=== PATIENT | male | born 1950 | race Two or more races ===

== ENCOUNTER → 2024-10-26 | Outpatient (BNVA) | payer MEDICARE, SELFPAY | END | disposition home or self-care (01) | PROVIDERS: PCP Nurse Practitioner Family; Referring Provider Nurse Practitioner Family; Visit Provider Nurse Practitioner Family | DX: F41.9 Anxiety disorder, unspecified (principal); I10 Essential (primary) hypertension; E78.5 Hyperlipidemia, unspecified; J44.9 Chronic obstructive pulmonary disease, unspecified | CPT/HCPCS: 99213 ==

== ENCOUNTER 2024-11-01 19:08 | Inpatient (IN) | payer MEDICARE, MEDICAID, SELFPAY ==
[2024-11-01 19:10] VITALS: BMI 25.8
--- NOTE | 2024-11-01 19:19 | EKG_ITS ---
[facility] Test Date: 2024-11-01 Pat Name: TESFAYE BENITEZ Department: Room: - Gender: Male Feed [employer]ender: : 1950 Requested By: Gabriele Caldwell Order Number: [id number] Reading MD: Gabriele Caldwell Measurements Intervals [place] Rate: 94 P: 35 [place]: 104 QRS: 83 QRSD: 92 T: 56 QT: 321 QTc: 402 Interpretive Statements SINUS RHYTHM WITH SHORT [place] INTERVAL Compared to ECG 03/09/2022 11:55:56 Sinus bradycardia no longer present /store/S0/[id number]
[2024-11-01 19:30] VITALS: BP 159/48; PULSE 95; RESP 20; TEMP 37.6; O2SAT 95
--- NOTE | 2024-11-01 21:16 | XR_ITS ---
Examination: CTA carotids with intravenous contrast CTA brain, head with intravenous contrast. 2-D sagittal, coronal reconstructions. 3-D reconstructions. Exam date and time: November 01, 2024 at 2137 hours INDICATIONS: Stroke alert, onset focal neurologic deficit today CTDI: vol (mGy) 10.9 DLP: (mGycm) 430 Technique: Multiple CTA axial brain, head carotid images post intravenous contrast injection 75 cc, Isovue-370. 2-D sagittal, coronal reconstructions. 3-D reconstructions, 3-D post processing including vascular maximum intensity projection images. Low dose protocols were performed. One or more of the following dose reduction techniques were used; automated exposure control, adjustment of the mA and/or KV according to patient size, use of iterative reconstruction technique. Findings: 30-50% stenosis left carotid bifurcation origin left internal carotid artery No significant right common carotid or right internal carotid artery stenosis Dominant right vertebral artery with no critical stenoses No cerebral vasculature occlusions or thrombus IMPRESSION: 30-50% stenosis left carotid bifurcation origin left internal carotid artery No cerebral large vessel arterial occlusions or thrombus
--- NOTE | 2024-11-01 21:16 | XR_ITS ---
Examination: CT brain head without contrast. 2-D sagittal coronal reconstructions Date and time of exam:November 01, 2024 2124 hours INDICATIONS: Onset focal neurologic deficit beginning 9 hours ago CTDI: vol (mGy):47.2 DLP: (mGycm):912 Technique: Multiple CT axial sections of the brain have been obtained, 5 mm slice thickness. Contrast has not been administered. 2-D sagittal, coronal reconstructions have been obtained Low dose protocols were performed. One or more of the following dose reduction techniques were used; automated exposure control, adjustment of the mA and/or KV according to patient size, use of iterative reconstruction technique. Findings: No significant ventricular enlargement. Significant left maxillary sinusitis Intra-axial or extra-axial hemorrhage density is not seen. No mass effect or midline shift Basal cisterns are not remarkable. Fourth ventricle is midline. Cranial vault intact. Impression: Negative for acute hemorrhage, mass effect or midline shift
--- NOTE | 2024-11-01 21:17 | PD.EDRME ---
Rapid Medical Screening Exam [facility] Arrival date/time: 11/01/24 19:08 73M with history of HTN, HLD, COPD, and anxiety/depression presents to ED with confusion and some slurred speech (per ) starting around noon today. Patient/ deny alcohol/drug use. Chief Complaint: Altered Mental Status Vital signs: Vital Signs Temperature 99.6 F 11/01/24 19:30 Pulse Rate 95 11/01/24 19:30 Respiratory Rate 20 11/01/24 19:30 Blood Pressure 159/48 H 11/01/24 19:30 Pulse Oximetry (%) 95 11/01/24 19:30 Oxygen Delivery Method Room Air 11/01/24 19:30
--- NOTE | 2024-11-01 21:19 | PD.EDAMS ---
Altered Mental Status RME/HPI General Chief Complaint: Altered Mental Status Stated Complaint: AMS PER FAMILY Arrival date/time: 11/01/24 19:08 Limitations: no limitations RME / HPI RME / HPI narrative: 11/01/24 19:08 73M with history of HTN, HLD, COPD, and anxiety/depression presents to ED with confusion and some slurred speech (per ) starting around noon today. Patient/ deny alcohol/drug use. Dr. Cotto's Main ED Evaluation: 73yo male with a history of COPD, HTN, HLD presents to the ED for a chief complaint of slurred speech x 1600. states the patient took a nap at 1500, reporting he woke up at 1600 and was talking differently. She states his speech didn't improve, so she brought him in for evaluation. She denies any alcohol or drug use. Denies any fever, chills, cough, weakness, numbness, difficulty ambulating or any other associated symptoms. No known allergies. Related Data Previous Rx's ?Medication ?Instructions ?Recorded albuterol sulfate 90 mcg/actuation 2 inh inhalation Q6H PRN shortness 05/08/24 aerosol inhaler of breath or wheezing #6.7 grams ipratropium bromide 17 2 puff inhalation Q8H #12.9 grams 05/08/24 mcg/actuation HFA aerosol inhaler (Atrovent HFA) compressor, for nebulizer #1 ea 06/01/24 budesonide 160 mcg-glycopyr 9 2 inh inhalation BID #10.7 grams 10/26/24 mcg-formot 4.8 mcg/actuation HFA inhaler (Breztri Aerosphere) lisinopril 40 mg tablet 40 mg PO QDAY #30 tabs 10/26/24 paroxetine HCl 10 mg tablet (Paxil) 10 mg PO QDAY #30 tabs 10/26/24 rosuvastatin 40 mg tablet 40 mg PO QDAY #30 tabs 10/26/24 Allergies Allergy/AdvReac Type Severity Reaction Status Date / Time No Known Allergies Allergy Verified 10/26/24 14:40 Review of Systems Review of Systems Systems Reviewed: All systems reviewed, normal except as documented Past Medical History Past Medical History NEUROLOGIC: Negative Neurological Disorders or Seizures CARDIAC: Positive Cardiac Disorders and Hypercholesterolemia (TAKES MED); Negative Congestive Heart Failure, Edema, Cellulitis or Varicose Veins RESPIRATORY: Negative Chronic Obstructive Pulmonary Disease (COPD), Asthma, Tuberculosis or Sleep Apnea GASTROINTESTINAL: Negative Gastrointestinal Disorders or Hepatitis GENITOURINARY: Negative Genitourinary Disorders or Renal Disease MUSCULOSKELETAL: Negative Musculoskeletal Disorders ENDOCRINE: Negative Endocrine Disorders, Diabetes Mellitus Type 1 or Diabetes Mellitus Type 2 HEMATOLOGIC: Negative Blood Disorders or Sickle Cell Disease OTHER HISTORY: Negative Hospitalization, Autoimmune Disease, Developmental Delay, Shingles, Falls, Blood Transfusions, Blood Transfusion Reaction, Anesthesia Reactions, Chemotherapy, Radiation Therapy, MRSA, Chicken Pox, Measles, Mumps, Clostridium Difficile or Cancer Family History FAMILY HISTORY: Negative Family Psychiatric Problems, Family Respiratory Disorders, Family Cardiac Disorders (UNKNOWN), Family Gastrointestinal Problems, Family Cancer, Family Surgery or Family Anesthesia Reaction Surgical History SURGICAL: Negative Pacemaker, Nephrectomy or Neurologic Surgery Social History SMOKING STATUS: Former smoker SECOND HAND EXPOSURE: Yes ED Exam General Limitations: Present no limitations General appearance: Present alert, in no apparent distress and other (no difficulty swallowing his saliva) Head Head exam: Present atraumatic Eye Eye exam: Present normal appearance, PERRL and EOMI ENT ENT exam: Present normal exam, normal oropharynx and mucous membranes moist Neck Neck exam: Present normal inspection, full ROM and trachea midline Chest Chest inspection: Present normal inspection and symmetric chest wall rise Respiratory Respiratory exam: Present normal lung sounds bilaterally Cardiovascular Cardiovascular exam: Present normal rhythm, bradycardia and normal heart sounds Abdominal Exam Abdominal exam: Present soft Extremities Exam Extremities exam: Present normal inspection and full ROM Back Exam Back exam: Present normal inspection and full ROM Neurological Exam Neurological exam: Present alert, oriented X3 and CN II-XII intact Psychiatric Psychiatric exam: Present normal affect and normal mood Skin Skin exam: Present warm, dry, intact and normal color Course Quality Measures Suspected type of Stroke: Unknown at this time Tenecteplase given: Reason(s) TPA not given: Outside the time window not given stroke Orders Category Date Time Status Blood glucose [Bedside Blood Glucose] NOW Care 11/01/24 19:19 Active COVID-19 Screening Questionnaire NOW Care 11/01/24 22:37 Active Senior Director Insight NOW Care 11/01/24 21:16 Active Continuous Pulse Oximetry NOW Care 11/01/24 21:16 Completed Decision to Admit X1 Care 11/01/24 22:37 Active EKG (ED ONLY) *Do not use* NOW Care 11/01/24 19:19 Completed In and Out Catheter NEEDED Care 11/01/24 21:16 Active Insert IV NOW Care 11/01/24 21:16 Active NIH Stroke Scale now Care 11/01/24 21:16 Active NPO NOW Care 11/01/24 21:16 Active Nurse Swallow Screen x1 Care 11/01/24 21:16 Active Consult to Neurology / Tele-Neurology Routine Cons 11/01/24 21:[address] angio stroke protocol Stat Exams 11/01/24 21:[address] stroke protocol Stat Exams 11/01/24 21:16 Completed EKG (ED Only) Stat Exams 11/01/24 19:19 Draft Alcohol, Blood Medical Stat Lab 11/01/24 21:37 Completed Ammonia Stat Lab 11/01/24 21:37 Completed CBC Stat Lab 11/01/24 21:37 Completed Comprehensive Metabolic Panel Stat Lab 11/01/24 21:37 Completed Drug Screen,Urine Stat Lab 11/02/24 00:01 Completed Magnesium Stat Lab 11/01/24 21:37 Completed Partial Thromboplastin Time Stat Lab 11/01/24 21:37 Completed Prothrombin Time with INR Stat Lab 11/01/24 21:37 Completed Troponin I Stat Lab 11/01/24 21:37 Completed Urinalysis Stat Lab 11/02/24 00:01 Completed Urine Culture Stat Lab 11/02/24 00:01 Received Ondansetron Inj [Zofran Inj] Med 11/01/24 21:16 Active 4 mg IV Q4HR PRN Oxygen Delivery NOW RT 11/01/24 21:16 Active Vital Signs Vital signs: Vital Signs Temperature 99.6 F 11/01/24 19:30 Pulse Rate 95 11/01/24 19:30 Respiratory Rate 20 11/01/24 19:30 Blood Pressure 159/48 H 11/01/24 19:30 Pulse Oximetry (%) 95 11/01/24 19:30 Oxygen Delivery Method Room Air 11/01/24 19:30 Altered Mental Status MDM Narrative MDM Narrative:: 73-year-old male HTN, HLD, COPD presents with his by ambulance with abnormal speech since 3 PM. The states that the patient laid down at 3 PM to take a nap and woke up with some expressive and receptive aphasia. Otherwise no weakness or numbness reported. Patient is not having difficulty swallowing, with normal gait at home without abnormalities ambulating.. Patient is not a tPA candidate secondary to being out of the window. By the emergency department the patient had a white count that was 14 but otherwise his EKG shows no atrial fibrillation. His CT scan of the head has no bleed however CT angio does show that he has got a 50% stenosis of the carotid bulb. Discussed with teleneurology at this time recommends Plavix and aspirin. Discussed with the hospitalist on-call who admit the patient for admission. Disposition: Emergency Department nursing documentation was reviewed including triage complaint, associated symptoms, administration of medications, response to therapy and vital signs. Telemetry neuro review of his notes and I spoke to him over the phone as well with recommendations. Given the history, physical exam, and review of laboratory and imaging studies the patient is determined to be unsafe for discharge and is being moved into the hospital for further diagnostic tests, treatments, stabilization, and monitored response to therapy. I communicated the history, physical exam, pertinent laboratory and imaging studies to the inpatient physician. The inpatient physician has access to electronic copies of all emergency department laboratory testing and imaging studies as well as medications ordered and administered. Patient data External records reviewed:: [facility] previous records (Per chart review, patient has no relevant previous ED visits or admissions to this facility.) Clinical information provided by:: spouse Social determinants that could affect healthcare access:: none Patient has the following chronic illnesses:: COPD, HTN, HLD How is presenting disease/condition affected by chronic disease/condition?: uneffected by Evaluation data The following diagnostics were reviewed and interpreted by me:: lab results, radiology exam(s) and EKG tracing(s) Lab and/or radiology exams considered but not ordered:: none Interpretation Summary: WBC count is elevated at 14.9, PT and INR are normal, PTT is normal, according to my interpretation. EKG done at 1927, NSR, rate of 94, [place] interval: 104, normal axis, no ST elevations or depressions, according to my interpretation. [facility] Report Signed Patient: TESFAYE BENITEZ Record#: [id number] Birthdate: 1950 Age/Sex: 73 / M Location: [facility] Attending Dr: Ordering Physician: Gabriele Caldwell PA-C Date of Service: 11/01/24 Procedure(s): CT angio stroke protocol Accession Number(s): [id number] cc: Tigre Johnston MD; Anisha Nava ([facility]); Gabriele Caldwell PA-C~ Examination: CTA carotids with intravenous contrast CTA brain, head with intravenous contrast. 2-D sagittal, coronal reconstructions. 3-D reconstructions. Exam date and time: November 01, 2024 at 2137 hours INDICATIONS: Stroke alert, onset focal neurologic deficit today CTDI: vol (mGy) 10.9 DLP: (mGycm) 430 Technique: Multiple CTA axial brain, head carotid images post intravenous contrast injection 75 cc, Isovue-370. 2-D sagittal, coronal reconstructions. 3-D reconstructions, 3-D post processing including vascular maximum intensity projection images. Low dose protocols were performed. One or more of the following dose reduction techniques were used; automated exposure control, adjustment of the mA and/or KV according to patient size, use of iterative reconstruction technique. Findings: 30-50% stenosis left carotid bifurcation origin left internal carotid artery No significant right common carotid or right internal carotid artery stenosis Dominant right vertebral artery with no critical stenoses No cerebral vasculature occlusions or thrombus IMPRESSION: 30-50% stenosis left carotid bifurcation origin left internal carotid artery No cerebral large vessel arterial occlusions or thrombus Dictated By: Tigre Johnston MD Signed By: <Electronically signed by Tigre Johnston MD in [place]> 11/01/242211 [facility] Report Signed Patient: TESFAYE BENITEZ Record#: [id number] Birthdate: 1950 Age/Sex: 73 / M Location: [facility] Attending Dr: Ordering Physician: Gabriele Caldwell PA-C Date of Service: 11/01/24 Procedure(s): CT stroke protocol Accession Number(s): [id number] cc: Tigre Johnston MD; Anisha Nava ([facility]); Gabriele Caldwell PA-C~ Examination: CT brain head without contrast. 2-D sagittal coronal reconstructions Date and time of exam:November 01, 2024 2124 hours INDICATIONS: Onset focal neurologic deficit beginning 9 hours ago CTDI: vol (mGy):47.2 DLP: (mGycm):912 Technique: Multiple CT axial sections of the brain have been obtained, 5 mm slice thickness. Contrast has not been administered. 2-D sagittal, coronal reconstructions have been obtained Low dose protocols were performed. One or more of the following dose reduction techniques were used; automated exposure control, adjustment of the mA and/or KV according to patient size, use of iterative reconstruction technique. Findings: No significant ventricular enlargement. Significant left maxillary sinusitis Intra-axial or extra-axial hemorrhage density is not seen. No mass effect or midline shift Basal cisterns are not remarkable. Fourth ventricle is midline. Cranial vault intact. Impression: Negative for acute hemorrhage, mass effect or midline shift Dictated By: Tigre Johnston MD Signed By: <Electronically signed by Tigre Johnston MD in [place]> 11/01/24 2130 Medications / Prescriptions Medications or Prescriptions considered but not ordered:: none Medication administrations:: Medication Administration History Acetaminophen (Acetaminophen 325 Mg Tablet) 650 mg PO Q6H PRN PRN Reason: Fever >100 or pain 1-3 Stop: 12/02/24 00:22 Albuterol/Ipratropium (Albuterol/Ipratropium (Duoneb) Rt Adriana 3 Ml Nebu) 3 ml INH Q6HRRT PRN PRN Reason: wheezing or SOB Stop: 12/02/24 06:59 Aspirin (Aspirin Ec 81 Mg Tabec) 81 mg PO QDAY ELEAZAR Stop: 12/01/24 23:29 Last Admin: 11/01/24 23:59 Dose: 81 mg Documented By: FATIMAH Atorvastatin Calcium (Atorvastatin Calcium 20 Mg Tablet) 40 mg PO HS ELEAZAR Stop: 12/02/24 20:59 Clopidogrel Bisulfate (Clopidogrel Bisulfate 75 Mg Tablet) 75 mg PO QDAY ELEAZAR Stop: 12/02/24 08:59 Enoxaparin Sodium (Enoxaparin Sod Inj 40 Mg/0.4 Ml Syringe) 40 mg SC QDAY ELEAZAR Stop: 11/16/24 08:59 Hydralazine HCl (Hydralazine Inj 20 Mg/Ml Vial) 10 mg IV Q2H PRN PRN Reason: for SBP above 220 for first 24 hours Stop: 11/03/24 03:44 Ondansetron HCl (Ondansetron Inj 2 Mg/Ml Inj 2 Ml) 4 mg IV Q4HR PRN PRN Reason: NAUSEA OR VOMITING Stop: 12/01/24 21:15 Last Admin: 11/01/24 23:58 Dose: 4 mg Documented By: FATIMAH Discontinued Medications Clopidogrel Bisulfate (Clopidogrel Bisulfate 75 Mg Tablet) 300 mg PO X1 ONE Stop: 11/01/24 23:29 Last Admin: 11/01/24 23:59 Dose: 300 mg Documented By: FATIMAH Burnette Consultations Consultation(s) initiated? (list below): Yes Consultation #1 (Physician, Specialty, Details): Discussed case with [Dr. Burrell] from [teleneurology] regarding [consultation]. Discussed patients ED course, exam findings, labs, and radiology results. No tPA due to being outside of the window. States if the CTA if negative, then to start the patient on Plavix and Aspirin. Time: 21:56 Consultation #2 (Physician, Specialty, Details): Discussed case with [Dr. Acosta] from Hospitalist service regarding admission. Discussed patients ED course, exam findings, labs, and radiology results. The Hospitalist agrees to accept the patient for admission. Time: 22:45 Diagnosis Differential diagnosis altered mental status: sepsis and other (CVA, TIA, ICH) Most likely diagnosis given after review of the tests above:: see clinical impression below Admission Indicated Admission indicated?: indicated Admission Request Was there a request for admission?: Yes Admission Attestation Admission request attestation: Discussed case with [] from Hospitalist service regarding admission. Discussed patients ED course, exam findings, labs, and radiology results. The Hospitalist [agrees,declines] to accept the patient for admission. Disposition Plan Disposition Plan: Admit Critical Care Time Critical Care Time Critical Care Time: Yes Total Critical Care Time (min.): 60 Attestation: The high probability of sudden, clinically significant deterioration in the patient?s condition required the highest level of my preparedness to intervene urgently. The services I provided to this patient were to treat and/or prevent clinically significant deterioration. Services included the following: chart data review, reviewing nursing notes and/or old charts, documentation time, senior sales consultant collaboration regarding findings and treatment options, medication orders and management, direct patient care, vital sign assessments and ordering, interpreting and reviewing diagnostic studies and lab tests. Aggregate critical care time includes only time during which I was engaged in work directly related to the patient?s care, as described above, whether at bedside or elsewhere in the Emergency Department. It did not include time spent performing other reported procedures or the services of residents, students, nurses or physician assistants. Discharge Plan Plan Patient Disposition: Admit Acute Care w/in Hospital Disposition Comment: Admitted to Dr. Acosta Problem List Clinical Impression: Expressive aphasia, Leukocytosis, Receptive aphasia, History of COPD, History of hypertension
--- NOTE | 2024-11-01 21:20 | PC.NURSE ---
stroke consult Case # [id number]?
[2024-11-01 21:53] LABS: Basophils # (Auto) 0.1 Thou/mm3 (0.0-0.2); Basophils % (Auto) 1 % (0-2.5); Eosinophils # (Auto) 0.2 Thou/mm3 (0.0-0.5); Eosinophils % (Auto) 2 % (0-10); Hematocrit 38.6 % (41.0-53.0); Hemoglobin 13.4 g/dL (13.5-16.0); Immature Granulocytes % (Auto) 0 % (0-0); Immature Granulocytes Auto 0.06 Thou/mm3 (0.00-0.00); Lymphocytes # (Auto) 2.6 Thou/mm3 (1.0-4.8); Lymphocytes % (Auto) 17 % (10-50); Mean Corpuscular HGB Conc 34.7 g/dl (31.0-37.0); Mean Corpuscular Hemoglobin 29.3 pg (25.0-35.0); Mean Corpuscular Volume 85 fL (80-100); Monocytes # (Auto) 1.6 Thou/mm3 (0.0-0.8); Monocytes % (Auto) 11 % (0-12); Neutrophils # (Auto) 10.4 Thou/mm3 (1.8-7.7); Neutrophils % (Auto) 70 % (37-80); Nucleated Red Blood Cell % 0 /100 WBC (0); Platelet Count 269 Thou/mm3 (140-440); RDW Standard Deviation 40.2 fL (35.1-43.9); Red Blood Count 4.57 Miln/mm3 (4.50-5.90); White Blood Count 14.9 Thou/mm3 (3.8-10.6)
--- NOTE | 2024-11-01 22:11 | PD.TNEURO ---
Tele Neuro Consultation Consultation Date 11/01/24 Most Recent Vital Signs Last Vital Signs Temp 99.6 F 11/01/24 19:30 Pulse 95 11/01/24 19:30 Resp 20 11/01/24 19:30 BP 159/48 H 11/01/24 19:30 Pulse Ox 95 11/01/24 19:30 O2 Del Method Room Air 11/01/24 19:30 Consultation Narrative [facility] Tele[facility]urology Consult Services Patient Name:???saul sanchez Date of :???1950 Identification Number:??? Date of Service:???11/01/2024 21:20:05 Diagnosis:?R47.01 - Aphasia Impression: ?73yo man with history of HTN, HLD, COPD presents with abnormal speech. Exam consistent with moderate expressive and receptive aphasia without significant motor deficits. Not a candidate for thrombolytics with LKW >4.5 hours out by the time of my evaluation. CTA pending, if no LVO recommend admission for stroke work up with MRI brain w/o, check 2d echo, start aspirin and plavix for now, permissive HTN to <220/120. Our recommendations are outlined below. Recommendations: ? Stroke/Telemetry Floor ? Neuro Checks ? Bedside Swallow Eval ? DVT Prophylaxis ? Head of Bed 30 Degrees ? Euglycemia and Avoid Hyperthermia (PRN Acetaminophen) ? Bolus with Clopidogrel 300 mg bolus x1 and initiate dual antiplatelet therapy with Aspirin 81 mg daily and Clopidogrel 75 mg daily ? Antihypertensives PRN if Blood pressure is greater than 220/120 or there is a concern for End organ damage/contraindications for permissive HTN. If blood pressure is greater than 220/120 give labetalol PO or IV or Vasotec IV with a goal of 15% reduction in BP during the first 24 hours. ?MRI brain w/o ?check 2d echo Sign Out: ? Discussed with Emergency Department Provider Advanced Imaging: Advanced imaging has been ordered. Results pending. Metrics: Last Known Well: 11/01/2024 15:00:00 Dispatch Time: 11/01/2024 21:20:05 Arrival Time: 11/01/2024 19:08:00 Initial Response Time: 11/01/2024 21:23:41Symptoms: aphasia. Initial patient interaction: 11/01/2024 21:27:59 NIHSS Assessment Completed: 11/01/2024 21:35:04Patient is not a candidate for Thrombolytic. Thrombolytic Medical Decision: 11/01/2024 21:42:26Patient was not deemed candidate for Thrombolytic because of following reasons: LKW outside 4.5 hr window. . I personally Reviewed the CT Head and it Showed no ICH or acute core infarct Primary Provider Notified of Diagnostic Impression and Management Plan on: 11/01/2024 21:57:05 History of Present Illness:Patient is a 73 year old Male. Patient was brought by private transportation with symptoms of aphasia. 73yo man with history of HTN, HLD, COPD presents with abnormal speech. Translation assistance via junior software developer at bedside with patient's . As per patient's he took a nap earlier in the day at 3pm and woke up at 4pm with abnormal 'rambling' speech, had trouble understanding what she was saying to him. This issue has continued throughout the rest of the day eventually prompting her to bring him to the ED for evaluation. He is not on any antiplatelet agents or anticoagulants. No prior history of stroke. Patient only able to name about 50% of presented objects and has difficulty following directions on my exam. Past Medical History: ?Hypertension ?Hyperlipidemia Other PMH:? COPD Medications: No Anticoagulant use? No Antiplatelet use Reviewed EMR for current medications Allergies:? Reviewed Social History: Drug Use: No Family History: There is no family history of premature cerebrovascular disease pertinent to this consultation ROS :?ROS Cannot Be Obtained Because:? Patient Is Confused Past Surgical History: There Is No Surgical History Contributory To Today?s Visit Examination: BP(159/48),?Pulse(95), 1A: Level of Consciousness - Alert; keenly responsive?+ 0 1B: Ask Month and Age - Both Questions Right?+ 0 1C: Blink Eyes & Squeeze Hands - Performs Both Tasks?+ 0 2: Test Horizontal Extraocular Movements - Normal?+ 0 3: Test Visual Chavira - No Visual Loss?+ 0 4: Test Facial Palsy (Use Grimace if Obtunded) - Normal symmetry?+ 0 5A: Test Left Arm Motor Drift - No Drift for 10 Seconds?+ 0 5B: Test Right Arm Motor Drift - No Drift for 10 Seconds?+ 0 6A: Test Left Leg Motor Drift - No Drift for 5 Seconds?+ 0 6B: Test Right Leg Motor Drift - No Drift for 5 Seconds?+ 0 7: Test Limb Ataxia (FNF/Heel-Newberry) - No Ataxia?+ 0 8: Test Sensation - Mild-Moderate Loss: Less Sharp/More Dull?+ 1 9: Test Language/Aphasia - Mild-Moderate Aphasia: Some Obvious Changes, Without Significant Limitation?+ 1 10: Test Dysarthria - Mild-Moderate Dysarthria: Slurring but can be understood?+ 1 11: Test Extinction/Inattention - No abnormality?+ 0 NIHSS Score:?3 NIHSS Free Text :?quiet speech, questionable facial asymmetry, reports sensation reduced right arm to LT, difficulty following commands for more complex steps like FTN Pre-Morbid Modified Zachary Scale:0 Points = No symptoms at all Spoke with :?Dr. Cotto This consult was conducted in real time using interactive audio and video technology. Patient was informed of the technology being used for this visit and agreed to proceed. Patient located in hospital and provider located at home/office setting. Patient is being evaluated for possible acute neurologic impairment and high probability of imminent or life-threatening deterioration. I spent total of 40 minutes providing care to this patient, including time for face to face visit via telemedicine, review of medical records, imaging studies and discussion of findings with providers, the patient and/or family. Dr Gilson Burrell [facility] For Inpatient follow-up with [facility] physician please call [facility] at . As we are not an outpatient service for any post hospital discharge needs please contact the hospital for assistance. If you have any questions for the [facility] physicians or need to reconsult for clinical or diagnostic changes please contact us via [facility] at .
[2024-11-01 22:15] LABS: Partial Thromboplastin Time 30.5 Seconds (22.0-36.0); Prothrombin Time 11.1 Seconds (9.0-12.2)
[2024-11-01 22:35] LABS: Ammonia < 10 uMol/L (11-32)
[2024-11-01 22:52] LABS: Alanine Aminotransferase 13 U/L (10-49); Albumin, Serum 4.4 gm/dL (3.4-4.8); Albumin/Globulin Ratio 1.4 (1.2-2.2); Alcohol, Blood Medical < 3.0 mg/dL (0-10.0); Alkaline Phosphatase 75 U/L (46-116); Anion Gap 9 (7-16); Aspartate Amino Transferase 15 U/L (0-34); BUN/Creatinine Ratio 27 Ratio (12-20); Bilirubin,Total 0.6 mg/dL (0.3-1.2); Blood Urea Nitrogen 27 mg/dL (9-23); Carbon Dioxide 22.2 mMol/L (20.0-31.0); Chloride 103 mMol/L (98-107); Estimated Creatinine Clearance 65.6 mL/min (>60); Globulin 3.1 gm/dL (2.3-3.5); Glucose 97 mg/dL (74-106); Magnesium 2.1 mg/dL (1.6-2.6); Osmolality,Calculated 273 (275-295); Potassium 4.6 mMol/L (3.4-5.1); Sodium 134 mMol/L (136-145); Total Protein 7.5 gm/dL (5.7-8.2); Troponin I < 0.002 ng/mL (0.0-0.045); eGFR > 60 See Note
--- NOTE | 2024-11-01 22:57 | EVENTNT_ITS ---
Documentation for date of: 11/01/24 Event Note Event Note: A 73-year-old male presented to the ER with the chief complaint of confusion. According to his , the patient was at his neurological baseline earlier in the day and took a nap in the afternoon. Upon awakening around 4 PM, he began demonstrating abnormal behavior, including confusion, disorganized speech, and difficulty answering basic orientation questions such as date, location, and personal information. He was reportedly moving chairs around without purpose and appeared disoriented. He had been experiencing progressive speech difficulties over the past 3 years, though no formal stroke was diagnosed. There was no r ecent trauma or known preceding illness. EMS was called due to acute confusion. The patient has a history of HTN, hyperlipidemia, and depression. Current medications include antihypertensives, antidepressants, and statins. Social history includes prior smoking and alcohol use; he has abstained from alcohol for the past 3 years and denies drug use. He lives at home with his . There is no history of prior stroke, although a similar episode occurred approximately three years ago. In the ER, vital signs recorded as temp 99.6 F, HR 95, RR 20, BP 159/48 mmHg. On examination, he was able to answer simple questions such as his 's and children's names, but was unable to provide place, time, or birthday. Lab revealed WBC 14.9 H, Hb 13.4, Plt 269, Na 134, K 4.6, BUN 27, Cr 1.0. EKG showed sinus rhythm. CT head was negative for acute hemorrhage, mass effect, or midline shift. CTA neck showed 30?50% stenosis at the origin of the left internal carotid artery. Stroke alert was activated. Neurology noted moderate expressive and receptive aphasia without significant motor deficits. He was not a candidate for thrombolytics due to last known well >4.5 hours prior to evaluation. Plan includes admission for stroke workup with MRI brain w/o contrast, 2D echo, initiation of Aspirin and Plavix, and permissive hypertension with goal BP <220/120. Cerebrovascular Accident ? Suspected Ischemic Stroke with Aphasia #Assessment: - Acute onset confusion and expressive/receptive aphasia (last known well >4.5 hrs) - CTA: 30?50% L ICA stenosis - CT Head: no acute hemorrhage - WBC 14.9, BP 159/48, afebrile, neuro exam: aphasia without motor deficits - Not a tPA candidate due to time of onset #Plan: - Admit to Telemetry unit - Frequent neuro checks - Maintain head of bed at 30? - Bedside swallow evaluation prior to oral intake - Initiate DAPT: Clopidogrel 300 mg x1, then 75 mg daily + Aspirin 81 mg daily - Permissive hypertension: treat only if BP >220/120 or signs of end-organ damage - DVT prophylaxis - Maintain euglycemia - MRI brain without contrast - TTE
[2024-11-01 23:00] VITALS: BP 132/87; PULSE 65; RESP 20; O2SAT 95
--- NOTE | 2024-11-01 23:34 | PC.NURSE ---
Pt resting quietly with family at bedside. Appears in NAD.
--- NOTE | 2024-11-01 23:38 | PC.NURSE ---
2114 Stoke alert called [address] via WC 2129 Neurologist consultation via Tele 2143 CT done and pt. into room 5 Per family Pt. was Last seen normal before his nap, unknown time. Pt. woke up at 1200 and family noticed slurred speech and confession. Hx: HTN, Hyperlipidemia, COPD. Pt presents with Nystagmus, slow to answer speech. No facial deficit. Pt. B with BP: 159/48
[2024-11-01] MEDS: ONDANSETRON INJ 2 MG/ML INJ 2 ML 4 MG IV (23:58)
[2024-11-01] MEDS: CLOPIDOGREL BISULFATE 75 MG TABLET 300 MG PO (23:59)
[2024-11-01] MEDS: ASPIRIN EC 81 MG TABEC PO (23:59)
[2024-11-02] VITALS (31 sets, daily range): BP systolic 92–160; BP diastolic 54–115; PULSE 57–87; RESP 15–25; TEMP 36.1–36.8; O2SAT 92–98
--- NOTE | 2024-11-02 | XR_ITS ---
Examinations: MRI Brain without intravenous contrast. MRA brain without intravenous contrast. MRA carotids without intravenous contrast 3-D vascular reconstructions Date and time of exam: November 02, 2024 0800 hours INDICATIONS: Onset altered mental status beginning yesterday, CT stroke alert November 01, 2024 Technique: Multiple axial and sagittal images of the brain have been obtained MRA brain carotid images without contrast obtained, including 3-D postprocessing, vascular maximum intensity projection images Findings: Sellaturcica is not enlarged. The optic chiasm and infundibular stalk are not remarkable. Prepontine and interpeduncular cisterns are not enlarged. No localized enlargement of the medulla or christine. Fourth ventricle and cerebellar tonsils normal in position. Subacute hemorrhage is not seen. Fourth ventricle is midline. Mass in the cerebellopontine angle region is not evident. 7th and 8th nerve complexes exhibits symmetry. Globes are symmetrical with no retro-orbital mass. Increased white matter signal prominent Diffusion-weighted images demonstrate no focus of restricted diffusion Mass-effect upon the ventricular system is not identified. MRA carotid images no carotid significant stenoses. MRA brain images no large vessel occlusions Impression: Negative for acute hemorrhage mass effect or midline shift No acute infarct
--- NOTE | 2024-11-02 00:22 | PD.RESHP ---
Documentation for date of: 11/02/24 HPI History of Present Illness History of present illness: HPI conducted with patient's as patient is a bit altered at this point Pavan is a 73 y/o male with PMHx hypertension, hyperlipidemia, COPD, comes in for an evaluation of altered mental status onset 4 PM today witnessed by his . Per patient's , patient has started to become fixated on certain things while in the house today, was speaking sentences that did not make sense and was acting abnormal. He denies him acting aggressive, however he was not able to answer several questions. She denies any trauma to the patient. She denies that the patient having any trouble with walking. He denies any chest pain, shortness of breath or headache. She says that he had a similar episode about couple of months ago and they did not go to the hospital for this because they were next well. She does say that they were both in [place] recently and came back in early October. They did not travel anywhere out of the ordinary for them while in [place], did not eat anything different and stayed home a majority of the time. Patient's also says that he takes max medicine called paroxetine 10 mg and had not taken it in a while because patient ran out of the medicine and was in [place]. He recently started the medicine again after getting prescription about 5 days ago. Denies any syncope, diaphoresis, numbness, tingling or weakness. No other complaints at this time. ED Course: Patient arrived to the ED with a temperature of 99.6, heart rate 95, respiratory rate 20, blood pressure 159/48, saturating 95% on room air. Patient was worked up was found to have a sodium of 134, potassium 4.6, BUN/creatinine of 27 and 1.0 respectively, blood glucose of 97, hemoglobin 13.4, white blood cell count of 15, osmolarity 273, magnesium 2.1, troponin negative x 1, EKG showed short CO interval however normal sinus rhythm rate of 94. Head CT was negative for acute hemorrhage, mass effect or midline shift. CTA head neck showed 30 to 50% stenosis of the left carotid bifurcation left carotid artery. Patient was given Zofran x 1. Teleneuro was consulted who recommended admission after NIHS score of 3 for stroke rule out. Medicine was consulted and patient was made to the floors. PMHx: As above Surgeries: Denies having any surgeries Meds: Paroxetine 10 mg, Atrovent, albuterol, Lipitor 40 mg Allergies: None Family Hx: Denies family history of medical problems including heart disease, stroke, diabetes mellitus Social Hx: Born in [place], lived in [place] for about 50 years. Working history includes working in the [employer]. Says that he smoked 1 pack a day for many years, has never been a heavy drinker and denies history of oral IV drug use. Lives with his . Review of Systems Review of Systems Narrative Review of Systems: Constitutional: No fever, chills, fatigue, weakness, weight loss HEENT: No eye pain, vision loss, ear pain, hearing loss, dysphagia, Cardiovascular: No chest pain, palpitations, edema, pain with walking Respiratory: No cough, shortness of breath, wheezing GI: No NVD, abdominal pain, constipation, blood in stool, loss of appetite, heartburn Extremities: No presence of pitting edema MSK: No back pain, joint pain, joint swelling Neuro: No dizziness, numbness, weakness, headaches, seizures, tremors, +aphasia Psych: No anxiety, depression Exam Vital Signs Temp Pulse Resp BP Pulse Ox O2 Del Method 98.2 F 68 18 127/68 95 Room Air 11/02/24 00:15 11/02/24 00:15 11/02/24 00:15 11/02/24 00:15 11/02/24 00:15 11/02/24 00:15 Narrative Exam General: AAOx2 not alert to time, NAD, yakut speaking male HEENT: Moist mucous membranes, conjunctiva clear, EOMI, PERRLA, Cardiovascular: S1, S2, radial pulses +2 bilat, RRR Pulmonary: CTAB bilat no cough, no wheezing GI: No tenderness to light or deep palpitation, no guarding, rigidity, rebound tenderness or distension Extremities: No presence of trace or pitting edema in lower extremities bilaterally, dorsalis pedis pulses +2 bilaterally Neuro: AAOx2, no focal motor or sensory deficits in the UE or LE bilat, no nystagmus noted, pupillary reflex +2 bilat, pt does not appear to display expressive aphasia at this time. Psych: Good judgement, thought and behavior Results: Labs 11/01/24 21:37 11/01/24 21:37 Labs: Short CBC 11/01/24 Range/Units 21:37 WBC 14.9 H (3.8-10.6) Thou/mm3 Hgb 13.4 L (13.5-16.0) g/dL Hct 38.6 L (41.0-53.0) % Plt Count 269 (140-440) Thou/mm3 BMP 11/01/24 21:37 Sodium 134 L Potassium 4.6 Chloride 103 Carbon Dioxide 22.2 BUN 27 H Creatinine 1.0 Glucose 97 Calcium 9.0 Cardiac Enzymes 11/01/24 Range/Units 21:37 Troponin I < 0.002 (0.0-0.045) ng/mL Liver Function 11/01/24 Range/Units 21:37 Total Bilirubin 0.6 (0.3-1.2) mg/dL AST 15 (0-34) U/L ALT 13 (10-49) U/L Alkaline Phosphatase 75 (46-116) U/L Albumin 4.4 (3.4-4.8) gm/dL Quality Measures Quality Measures stroke Suspected type of Stroke: Unknown at this time Tenecteplase given: Reason(s) Tenecteplase not given: Outside the time window not given Rehab services: PT evaluation ordered and Speech Language Pathology eval ordered VTE Prophylaxis: pharmaceutical (Lovenox) Antithrombotic by day 2:: not indicated (describe) Statin ordered: <75 y/o high intensity dose Anticoagulation ordered for A-fib or flutter (current or hx): not indicated Advance care planning discussed with:: patient and spouse Medications Home Medications and Allergies Allergies Allergy/AdvReac Type Severity Reaction Status Date / Time No Known Allergies Allergy Verified 10/26/24 14:40 Visit Medications Aspirin (Aspirin Ec 81 Mg Tabec) 81 mg PO QDAY [facility] Stop: 12/01/24 23:29 Last Admin: 11/01/24 23:59 Dose: 81 mg Clopidogrel Bisulfate (Clopidogrel Bisulfate 75 Mg Tablet) 75 mg PO QDAY [facility] Stop: 12/02/24 08:59 Ondansetron HCl (Ondansetron Inj 2 Mg/Ml Inj 2 Ml) 4 mg IV Q4HR PRN PRN Reason: NAUSEA OR VOMITING Stop: 12/01/24 21:15 Last Admin: 11/01/24 23:58 Dose: 4 mg Discontinued Medications Clopidogrel Bisulfate (Clopidogrel Bisulfate 75 Mg Tablet) 300 mg PO X1 ONE Stop: 11/01/24 23:29 Last Admin: 11/01/24 23:59 Dose: 300 mg Assessment & Plan Plan Assessment Pavan is a 73 y/o male with PMHx hypertension, hyperlipidemia, COPD who is evaluated for acute encephalopathy and CVA rule out. #Acute encephalopathy #Expressive aphasia #Acute CVA rule out DDx: CVA, TIA, metabolic encephalopathy, drug withdrawal Patient has not been taking paroxetine consistently, this could be related to withdrawal Patient's symptoms do not appear to be focal or located in 1 spot at this point Neurologic exam appears to be unremarkable at this point, however patient is still AAOx2 not alert to time Will see how patient improves with paroxetine and other workup May be SSRI withdrawal from paroxetine NIHSS: 3 No tPA given Plan: ? Neurology consulted, appreciate recs ? MR stroke protocol ? Speech therapy ? Physical therapy ? Echo to rule out PFO ? Neurochecks every 4 hours ? Head of bed elevation 30 degrees ? DVT prophylaxis ? Bedrest ? Allow for permissive hypertension for the first 24 hours ? Follow up UDS ? Dual antiplatelet therapy with aspirin and clopidogrel and clopidogrel loading dose of 300 mg ? Lipitor 40 mg at bedtime ? Telemetry ? Follow-up TSH, lipid panel, A1c #Hypertension #Hyperlipidemia Chronic Plan: ? Permissive hypertension at this point ? Resumed home Lipitor 40 mg at bedtime ? Follow-up lipid panel #History of pulmonary nodule, 6mm, R upper lobe #History of COPD Seen on previous CXR, 6mm RUL Plan: ? Outpatient follow-up for CT for pulmonary nodule ? DuoNebs every 6 hours as needed #Health Maintenance Disposition: Telemetry DVT prophylaxis: Lovenox GI prophylaxis: None Indicated at this time Diet: Pending Swallow Evla CODE STATUS: Full Patient seen and care discussed with my attending physician, Dr. Dave Pang, PGY-1 Attending Provider Attestation/Addendum Pt was evaluated and plan formulated together with the housestaff team. I have reviewed the residents note above and agree with most of its content. Please refer to the residents note for additional details.
--- NOTE | 2024-11-02 00:25 | ECHO_ITS ---
Transthoracic Echo Report Ht (in): 68 Wt (lb): 170 Exam Location: Portable Status: Inpatient Spool Carrier: MALIKA Mallory^^^^ Indications: Procedure Performed: BP: 92 / 57 HR: 69 Technical Quality: Fair MEASUREMENTS (Male / Female) Normal Values 2D ECHO LV Diastolic Diameter PLAX 3.9 cm 4.2 - 5.9 / 3.9 - 5.3 cm LV Systolic Diameter PLAX 2.6 cm IVS Diastolic Thickness 0.9 cm 0.6 - 1.0 / 0.6 - 0.9 cm LVPW Diastolic Thickness 1.1 cm 0.6 - 1.0 / 0.6 - 0.9 cm LV Relative Wall Thickness 0.5 LVOT Diameter 1.7 cm Aortic Root Diameter 3.2 cm LA Systolic Diameter LX 3.4 cm 3.0 - 4.0 / 2.7 - 3.8 cm LV Ejection Fraction MOD 4C 70.2 % LV Cardiac Index MOD 4C 2852.3 cm?/min?m? LV Ejection Fraction 4C AL 70.8 % LV Cardiac Index 4C AL 2979.4 cm?/min?m? LA Volume Index 29.7 cm?/m? 16 - 28 cm?/m? Ascending Aorta Diameter 3.0 cm DOPPLER AV Peak Velocity 177.5 cm/s AV Peak Gradient 12.6 mmHg AV Mean Gradient 6.0 mmHg AV Velocity Time Integral 37.9 cm LVOT Peak Velocity 137.0 cm/s LVOT Peak Gradient 7.5 mmHg LVOT Velocity Time Integral 30.5 cm LVOT Cardiac Index 2468.3 cm?/min?m? AV Area Cont Eq vti 1.8 cm? AV Area Cont Eq pk 1.8 cm? MV Area PHT 4.1 cm? Mitral E Point Velocity 78.4 cm/s Mitral A Point Velocity 85.6 cm/s Mitral E to A Ratio 0.9 LV E' Lateral Velocity 11.5 cm/s Mitral E to LV E' Lateral Ratio 6.8 LV E' Septal Velocity 9.4 cm/s Mitral E to LV E' Septal Ratio 8.3 TR Peak Velocity 230.0 cm/s TR Peak Gradient 21.2 mmHg PV Peak Velocity 109.0 cm/s PV Peak Gradient 4.8 mmHg RVOT Peak Velocity 67.2 cm/s FINDINGS Left Ventricle Normal left ventricular size, wall thickness, systolic function with no obvious regional wall motion abnormalities. There is grade I diastolic dysfunction of the left ventricle (impaired relaxation pattern). The left ventricular ejection fraction is normal, estimated at 60-65%. Right Ventricle The right ventricle is normal in size and systolic function. The estimated right ventricular systolic pressure, 23 mmHg. Left Atrium The left atrium is normal by two-dimensional, color flow and Doppler imaging with no structural abnormalities, no thrombus formation present. Right Atrium The right atrium is normal by two-dimensional imaging, color flow and Doppler imaging with no structural abnormalities, no thrombus formation present. Atrial Septum The interatrial septum is normal to color flow Doppler and agitated saline imaging. Aorta The aorta is normal by two-dimensional, color flow and Doppler interrogation. Mitral Valve Mild mitral regurgitation. Mild mitral annular calcification. Aortic Valve Perforation seen on the non-coronary cusp/annulus of the aortic valve. Mild aortic valve stenosis. Mild thickening of the aortic valve leaflets. Tricuspid Valve There is mild tricuspid valve regurgitation. Pulmonic Valve Trivial pulmonic valve regurgitation. Vessels The pulmonary artery appears normal. The inferior vena cava pulmonary and hepatic veins appear normal. Pericardium The pericardium is normal by two-dimensional imaging. There is no significant pericardial effusion. CONCLUSIONS Indication: Stroke W/ Bubble Bubble study negative for PFO or ASD. TTE suboptimal and GUY if high clinical index of suspicion. LV size and function normal with an estimated EF of 60 to 65%. Stage I diastolic dysfunction. RV size and function normal with normal RVSP of 23 mmHg. Moderate aortic valve sclerosis without stenosis with the calcification of the noncoronary cusp. Mild MAC with trace MR as well as mild TR. Maurizio Sanchez (Electronically Signed) Final Date: 03 November 2024 01:29
[2024-11-02 00:29] LABS: Collection Type, Urine Clean Catch
[2024-11-02 00:35] LABS: Bilirubin,Urine Negative (Negative); Blood,Urine Trace (Negative); Clarity,Urine Clear (Clear/Hazy); Color,Urine Lt-Yellow (Lt Yel-Yel); Glucose, Urine Negative (Negative); Ketones,Urine Negative (Negative); Leukocyte Esterase,Urine Negative (Negative); Nitrite,Urine Negative (Negative); PH,Urine 6.5 (5.0-7.0); Protein,Urine 1+ (Neg - Trace); RBC,Urine 7 /hpf (0-3); Specific Gravity,Urine 1.048 (1.001-1.035); Squamous Epithelial Cell,Urine < 1 /hpf (0-5); Urobilinogen,Urine Negative mg/dL (0.0-1.0); WBC,Urine 4 /hpf (0-5)
[2024-11-02 00:43] LABS: Amphetamine/Methamp Scrn,U Negative (Negative); Barbiturate Screen,Urine Negative (Negative); Benzodiazepines Screen,Urine Negative (Negative); Benzoylecgonine Screen, Ur Negative (Negative); Fentanyl Screen,Urine Negative (Negative); Opiate Screen,Urine Negative (Negative); THC Screen,Urine Negative (Negative)
--- NOTE | 2024-11-02 04:16 | PC.NURSE ---
Pt asleep. Arouses easily. No changes. Family at bedside.
[2024-11-02 05:32] LABS: Basophils # (Auto) 0.1 Thou/mm3 (0.0-0.2); Basophils % (Auto) 1 % (0-2.5); Eosinophils # (Auto) 0.4 Thou/mm3 (0.0-0.5); Eosinophils % (Auto) 3 % (0-10); Hematocrit 36.5 % (41.0-53.0); Hemoglobin 12.5 g/dL (13.5-16.0); Immature Granulocytes % (Auto) 0 % (0-0); Immature Granulocytes Auto 0.04 Thou/mm3 (0.00-0.00); Lymphocytes # (Auto) 2.5 Thou/mm3 (1.0-4.8); Lymphocytes % (Auto) 17 % (10-50); Mean Corpuscular HGB Conc 34.2 g/dl (31.0-37.0); Mean Corpuscular Hemoglobin 29.1 pg (25.0-35.0); Mean Corpuscular Volume 85 fL (80-100); Monocytes # (Auto) 1.6 Thou/mm3 (0.0-0.8); Monocytes % (Auto) 11 % (0-12); Neutrophils # (Auto) 9.7 Thou/mm3 (1.8-7.7); Neutrophils % (Auto) 68 % (37-80); Nucleated Red Blood Cell % 0 /100 WBC (0); Platelet Count 262 Thou/mm3 (140-440); RDW Standard Deviation 40.4 fL (35.1-43.9); Red Blood Count 4.29 Miln/mm3 (4.50-5.90); White Blood Count 14.3 Thou/mm3 (3.8-10.6)
[2024-11-02 06:29] LABS: Alanine Aminotransferase 12 U/L (10-49); Albumin, Serum 4.1 gm/dL (3.4-4.8); Albumin/Globulin Ratio 1.5 (1.2-2.2); Alkaline Phosphatase 71 U/L (46-116); Anion Gap 11 (7-16); Aspartate Amino Transferase 13 U/L (0-34); BUN/Creatinine Ratio 24 Ratio (12-20); Blood Urea Nitrogen 22 mg/dL (9-23); Calcium 8.7 mg/dL (8.3-10.6); Calcium (Corrected) 8.7 mg/dL (8.5-10.1); Carbon Dioxide 22.9 mMol/L (20.0-31.0); Cardiac Risk Estimate 4.3 RATIO (4.0-6.7); Chloride 102 mMol/L (98-107); Cholesterol 196 mg/dL (132-200); Creatinine (Component) 0.9 mg/dL (0.6-1.3); Estimated Creatinine Clearance 72.8 mL/min (>60); Globulin 2.7 gm/dL (2.3-3.5); Glucose 109 mg/dL (74-106); HDL Cholesterol 46 mg/dL (40-60); LDL Cholesterol,Calculated 136 mg/dL (0-130); Magnesium 2.1 mg/dL (1.6-2.6); Osmolality,Calculated 276 (275-295); Potassium 4.4 mMol/L (3.4-5.1); Sodium 136 mMol/L (136-145); Thyroid Stimulating Hormone 1.87 uIU/mL (0.55-4.78); Total Protein 6.8 gm/dL (5.7-8.2); Triglycerides 68 mg/dL (30-150); eGFR > 60 See Note
[2024-11-02 07:13] LABS: Glucose Estimated Average 114 mg/dL (80-131); Hemoglobin A1C 5.6 % Hgb (4.8-6.0)
[2024-11-02 11:38] LABS: Folate 14.43 ng/mL (>5.38); Vitamin B12 455 pg/mL (211-911)
[2024-11-02 11:52] LABS: Syphilis Nonreactive (Nonreactive)
[2024-11-02] MEDS: CLOPIDOGREL BISULFATE 75 MG TABLET PO (13:02)
[2024-11-02] MEDS: ASPIRIN EC 81 MG TABEC PO (13:02)
[2024-11-02] MEDS: ENOXAPARIN SOD INJ 40 MG/0.4 ML SYRINGE SC (13:03)
--- NOTE | 2024-11-02 16:11 | RESP.EEG ---
EEG ready to be read
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
--- NOTE | 2024-11-02 17:47 | ESCONSULT_ITS ---
HPI Data of Consult Requesting Physician: Robert Corbett MD Admitting Provider: Yoan Acosta MD Attending Provider: Robert Corbett MD Primary Care Provider: CARRILLO Harley Consult Narrative History of present illness: Patient is a 73-year-old male with past medical history of hypertension, hyperlipidemia, COPD, comes in for an evaluation of altered mental status. Per patient has been having difficulty word finding and yesterday was acting strangely by moving chairs around and asking the same questions repeatedly. Per patient has been having difficulty with word finding for about 3 years and has progressively gotten worse. Neurology consulted for CVA workup and management. cc:: cc: Robert Corbett MD Exam Vital Signs Temp Pulse Resp BP Pulse Ox O2 Del Method 98.2 F 60 15 127/66 96 Room Air 11/02/24 17:12 11/02/24 17:12 11/02/24 17:12 11/02/24 17:12 11/02/24 17:12 11/02/24 15:58 Narrative Exam Gen: Well-developed and well-nourished. HEENT: NCAT, PERRLA, EOMI, CVS: Irregularly irregular, no murmurs, rubs, or gallops. Resp: CTA B/L. No rhonchi, rales, crackles or wheezing. Abd: soft, non-tender, non-distended. Active bowel sounds. Neuro: CN II-XII grossly intact. Strength 5/5 in BUE & BLE. Alert and oriented x3. Was not able to fully perform [id number], [id number], has trouble with understanding commands. Slight aphasia. Psych: appropriate mood and affect. Results Labs 11/02/24 04:40 11/02/24 04:40 Labs: Short CBC 11/01/24 11/02/24 Range/Units 21:37 04:40 WBC 14.9 H 14.3 H (3.8-10.6) Thou/mm3 Hgb 13.4 L 12.5 L (13.5-16.0) g/dL Hct 38.6 L 36.5 L (41.0-53.0) % Plt Count 269 262 (140-440) Thou/mm3 BMP 11/01/24 11/02/24 21:37 04:40 Sodium 134 L 136 Potassium 4.6 4.4 Chloride 103 102 Carbon Dioxide 22.2 22.9 BUN 27 H 22 Creatinine 1.0 0.9 Glucose 97 109 H Calcium 9.0 8.7 Cardiac Enzymes 11/01/24 Range/Units 21:37 Troponin I < 0.002 (0.0-0.045) ng/mL Liver Function 11/01/24 11/02/24 Range/Units 21:37 04:40 Total Bilirubin 0.6 1.0 (0.3-1.2) mg/dL AST 15 13 (0-34) U/L ALT 13 12 (10-49) U/L Alkaline Phosphatase 75 71 (46-116) U/L Albumin 4.4 4.1 (3.4-4.8) gm/dL Urine 11/02/24 Range/Units 00:01 Urine Color Lt-Yellow (Lt Yel-Yel) Urine Clarity Clear (Clear/Hazy) Urine pH 6.5 (5.0-7.0) Ur Specific [place] 1.048 H (1.001-1.035) Urine Protein 1+ A (Neg - Trace) Urine Glucose (UA) Negative (Negative) Quality Measures Quality Measures stroke Suspected type of Stroke: TIA Tenecteplase given: Reason(s) Tenecteplase not given: Outside the time window not given Rehab services: PT evaluation ordered VTE Prophylaxis: pharmaceutical Antithrombotic by day 2:: not indicated (describe) Statin ordered: <75 y/o high intensity dose Advance care planning discussed with:: patient Medications Home Medications and Allergies Allergies Allergy/AdvReac Type Severity Reaction Status Date / Time No Known Allergies Allergy Verified 10/26/24 14:40 Visit Medications Acetaminophen (Acetaminophen 325 Mg Tablet) 650 mg PO Q6H PRN PRN Reason: Fever >100 or pain 1-3 Stop: 12/02/24 00:22 Albuterol/Ipratropium (Albuterol/Ipratropium (Duoneb) Rt Adriana 3 Ml Nebu) 3 ml INH Q6HRRT PRN PRN Reason: wheezing or SOB Stop: 12/02/24 06:59 Aspirin (Aspirin Ec 81 Mg Tabec) 81 mg PO QDAY ELEAZAR Stop: 12/01/24 23:29 Last Admin: 11/02/24 13:02 Dose: 81 mg Atorvastatin Calcium (Atorvastatin Calcium 20 Mg Tablet) 40 mg PO HS ELEAZAR Stop: 12/02/24 20:59 Clopidogrel Bisulfate (Clopidogrel Bisulfate 75 Mg Tablet) 75 mg PO QDAY ELEAZAR Stop: 12/02/24 08:59 Last Admin: 11/02/24 13:02 Dose: 75 mg Enoxaparin Sodium (Enoxaparin Sod Inj 40 Mg/0.4 Ml Syringe) 40 mg SC QDAY ELEAZAR Stop: 11/16/24 08:59 Last Admin: 11/02/24 13:03 Dose: 40 mg Hydralazine HCl (Hydralazine Inj 20 Mg/Ml Vial) 10 mg IV Q2H PRN PRN Reason: for SBP above 220 for first 24 hours Stop: 11/03/24 03:44 Ondansetron HCl (Ondansetron Inj 2 Mg/Ml Inj 2 Ml) 4 mg IV Q4HR PRN PRN Reason: NAUSEA OR VOMITING Stop: 12/01/24 21:15 Last Admin: 11/01/24 23:58 Dose: 4 mg Discontinued Medications Clopidogrel Bisulfate (Clopidogrel Bisulfate 75 Mg Tablet) 300 mg PO X1 ONE Stop: 11/01/24 23:29 Last Admin: 11/01/24 23:59 Dose: 300 mg Assessment & Plan Plan #Acute encephalopathy #CVA workup CT head negative for any acute changes MRI of the head negative for any stroke or white matter changes CTA head and neck shows mild stenosis left carotid artery bifurcation. 30 to 50%. Pending cardiac echo Recommend PT and speech eval B12 a WNL U-Tox negative Syphilis serology negative UA negative for any signs of UTI Ammonia WNL A1c WNL Electrolytes WNL Pending vitamin D. EEG pending Patient to be started on aspirin 81 mg and Plavix 75 mg with dual antiplatelet medication for 21 days Start high-dose statin #Hypertension #Hyperlipidemia #COPD #? A-fib Continue management per primary team Case discussed with attending physician Dr Arjun Hunter MD PGY3.
[2024-11-02] MEDS: ATORVASTATIN CALCIUM 20 MG TABLET 40 MG PO (23:29)
--- NOTE | 2024-11-02 23:36 | PC.LAC ---
pt is GCS 15. VS WNL. report called to Briesida ESCOBEDO
[2024-11-03] MEDS: HALOPERIDOL LACT INJ 5 MG/ML VIAL 2.5 MG IM (01:48)
--- NOTE | 2024-11-03 02:05 | PC.NURSE ---
0205 Brandy Gao called, pt confused, being combative when i attempted to give medication, wanting to get out of bed to leave. prior to code being called pt had removed his IV.
[2024-11-03 04:00] VITALS: BP 174/99; PULSE 68; PULSE 81; RESP 17; TEMP 36.4; O2SAT 99
[2024-11-03 06:00] VITALS: BMI 25.8
[2024-11-03 06:31] LABS: Basophils # (Auto) 0.1 Thou/mm3 (0.0-0.2); Basophils % (Auto) 1 % (0-2.5); Eosinophils # (Auto) 0.3 Thou/mm3 (0.0-0.5); Eosinophils % (Auto) 2 % (0-10); Hematocrit 39.6 % (41.0-53.0); Hemoglobin 13.8 g/dL (13.5-16.0); Immature Granulocytes % (Auto) 0 % (0-0); Immature Granulocytes Auto 0.03 Thou/mm3 (0.00-0.00); Lymphocytes # (Auto) 3.2 Thou/mm3 (1.0-4.8); Lymphocytes % (Auto) 24 % (10-50); Mean Corpuscular HGB Conc 34.8 g/dl (31.0-37.0); Mean Corpuscular Hemoglobin 29.3 pg (25.0-35.0); Mean Corpuscular Volume 84 fL (80-100); Monocytes # (Auto) 1.2 Thou/mm3 (0.0-0.8); Monocytes % (Auto) 9 % (0-12); Neutrophils # (Auto) 8.6 Thou/mm3 (1.8-7.7); Neutrophils % (Auto) 65 % (37-80); Nucleated Red Blood Cell % 0 /100 WBC (0); Platelet Count 316 Thou/mm3 (140-440); RDW Standard Deviation 38.9 fL (35.1-43.9); Red Blood Count 4.71 Miln/mm3 (4.50-5.90); White Blood Count 13.4 Thou/mm3 (3.8-10.6)
[2024-11-03 06:47] LABS: Partial Thromboplastin Time 34.1 Seconds (22.0-36.0); Prothrombin Time 11.4 Seconds (9.0-12.2)
[2024-11-03 06:52] LABS: Vitamin D 25 Hydroxy Total 23.7 ng/mL (7.3-40.2)
[2024-11-03 06:57] LABS: Alanine Aminotransferase 13 U/L (10-49); Albumin, Serum 4.4 gm/dL (3.4-4.8); Albumin/Globulin Ratio 1.4 (1.2-2.2); Alkaline Phosphatase 82 U/L (46-116); Anion Gap 13 (7-16); Aspartate Amino Transferase 23 U/L (0-34); BUN/Creatinine Ratio 23 Ratio (12-20); Bilirubin,Total 0.6 mg/dL (0.3-1.2); Blood Urea Nitrogen 18 mg/dL (9-23); Calcium 9.3 mg/dL (8.3-10.6); Calcium (Corrected) 9.3 mg/dL (8.5-10.1); Carbon Dioxide 21.4 mMol/L (20.0-31.0); Chloride 102 mMol/L (98-107); Creatinine (Component) 0.8 mg/dL (0.6-1.3); Estimated Creatinine Clearance 81.9 mL/min (>60); Globulin 3.2 gm/dL (2.3-3.5); Glucose 111 mg/dL (74-106); Osmolality,Calculated 274 (275-295); Phosphorous 3.7 mg/dL (2.4-5.1); Potassium 4.1 mMol/L (3.4-5.1); Sodium 136 mMol/L (136-145); Total Protein 7.6 gm/dL (5.7-8.2); eGFR > 60 See Note
[2024-11-03 08:00] VITALS: BP 162/97; PULSE 67; PULSE 69; RESP 20; TEMP 36.2; O2SAT 98
[2024-11-03 09:57] VITALS: BP 162/97; PULSE 69
[2024-11-03] MEDS: CLOPIDOGREL BISULFATE 75 MG TABLET PO (09:57)
[2024-11-03] MEDS: ENOXAPARIN SOD INJ 40 MG/0.4 ML SYRINGE SC (09:57)
[2024-11-03] MEDS: Lisinopril 2.5 MG TABLET 5 MG PO (09:57)
[2024-11-03] MEDS: ASPIRIN EC 81 MG TABEC PO (09:57)
[2024-11-03] MEDS: PARoxetine HCL 10 MG TABLET PO (10:51)
[2024-11-03 12:00] VITALS: BP 155/73; PULSE 106; PULSE 81; RESP 18; TEMP 36.6; O2SAT 97
--- NOTE | 2024-11-03 12:00 | CHAP ---
Patient was visited by the Spiritual Care Volunteer from whom they received communion. (Volunteer was in the hospital from 10:00-12:00)
--- NOTE | 2024-11-03 15:20 | ESPR_ITS ---
<Statement entered by Farheen Steve MD - 11/04/24 13:24> Patient was seen and examined by me personally. I have directly supervised and reviewed documentation by the team resident and agree with its findings with any exceptions or additional findings as below. Plan of care was discussed with the attending, Dr. Corbett. Overnight the patient had a code krause event requiring soft wrist restraints and haloperidol 2.5 mg. Patient reported he did not remember events from last night. Patient is still mildly confused. Neuro recommended to continue aspirin and Plavix for now, although behavioral changes are most likely secondary to dementia. Awaiting PT evaluation before final dispo. Farheen Steve, PGY-2 Documentation for date of: 11/03/24 Subjective Subjective Interval history: Patient was seen and examined by the bedside. Overnight patient was agitated and was pulling on lines, received haloperidol 2.5 mg and was restrained with soft wrist restraints bilaterally. Today in the morning he appears mildly confused, AAO x 2, reported that he is at [place], reported that he poorly remembers last night and that there were people looking for him. Dr. Díaz recommended to continue DAPT for 21 days, after that aspirin 81 mg, reported that the patient most likely has nonspecified dementia. Family at the bedside, they were explained the findings on MRI scan and that the history of slow progressive speech and cognition decline could be a sign of dementia. They also reported that the patient started to take paroxetine a few months ago, but they did not notice any improvement in his condition. Pending PT eval. Exam Vital Signs Temp Pulse Resp BP Pulse Ox O2 Del Method 97.8 F 106 H 18 155/73 H 97 Room Air 11/03/24 12:00 11/03/24 12:00 11/03/24 12:00 11/03/24 12:00 11/03/24 12:11/03/24 12:00 Narrative Exam Physical Exam General: Awake and in no acute distress. Conversational and non-toxic appearing. HEENT: Normocephalic, atraumatic, mucous membranes moist. Heart: Regular rate and rhythm, no murmurs. Lungs: Clear to auscultation with no wheezing or crackles. Abdomen: Soft, nondistended, nontender, positive bowel sounds. ?No guarding or rebound tenderness. Neurologic: Alert and oriented x2, slightly aphasic and patient able to move all 4 extremities. Extremities: No edema. Skin: No rash or ecchymoses. Objective Labs 11/03/24 05:38 11/03/24 05:38 Labs: Laboratory Results - last 24 hr 11/03/24 05:38 WBC 13.4 H RBC 4.71 Hgb 13.8 Hct 39.6 L MCV 84 MCH 29.3 MCHC 34.8 RDW Std Deviation 38.9 Plt Count 316 D Neut % (Auto) 65 Lymph % (Auto) 24 [place] % (Auto) 9 Eos % (Auto) 2 Baso % (Auto) 1 Neut # (Auto) 8.6 H Lymph # (Auto) 3.2 [place] # (Auto) 1.2 H Eos # (Auto) 0.3 Baso # (Auto) 0.1 Immature Gran # (Auto) 0.03 H Absolute Nucleated RBC 0.00 Immature Gran % 0 Nucleated RBC % 0 PT 11.4 INR 1.0 APTT 34.1 Sodium 136 Potassium 4.1 Chloride 102 Carbon Dioxide 21.4 Anion Gap 13 BUN 18 Creatinine 0.8 Estim Creat Clear Calc 81.9 eGFR > 60 BUN/Creatinine Ratio 23 H Glucose 111 H Calculated Osmolality 274 L Calcium 9.3 Corrected Calcium 9.3 Phosphorus 3.7 Magnesium 2.0 Total Bilirubin 0.6 AST 23 ALT 13 Alkaline Phosphatase 82 Total Protein 7.6 Albumin 4.4 Globulin 3.2 Albumin/Globulin Ratio 1.4 25-OH Vitamin D Total 23.7 Quality Measures Quality Measures VTE prophylaxis Advance care planning discussed with:: other Assessment & Plan Assessment Current Active Medications: Generic Name Dose Route Start Last Admin Trade Name Freq PRN Reason Stop Dose Admin Acetaminophen 650 mg 11/02/24 00:23 Acetaminophen 325 Mg Tablet PO 12/02/24 00:22 Q6H PRN Fever >100 or pain 1-3 Albuterol/Ipratropium 3 ml 11/02/24 02:38 Albuterol/Ipratropium (Duoneb) Rt Adriana 3 Ml Nebu INH 12/02/24 06:59 Q6HRRT PRN wheezing or SOB Aspirin 81 mg 11/01/24 23:30 11/03/24 09:57 Aspirin Ec 81 Mg Tabec PO 12/01/24 23:29 81 mg QDAY ELEAZAR Administration Atorvastatin Calcium 80 mg 11/03/24 21:00 Atorvastatin Calcium 20 Mg Tablet PO 12/03/24 20:59 HS ELEAZAR Clopidogrel Bisulfate 75 mg 11/02/24 09:00 11/03/24 09:57 Clopidogrel Bisulfate 75 Mg Tablet PO 12/02/24 08:59 75 mg QDAY ELEAZAR Administration Enoxaparin Sodium 40 mg 11/02/24 09:00 11/03/24 09:57 Enoxaparin Sod Inj 40 Mg/0.4 Ml Syringe SC 11/16/24 08:59 40 mg QDAY ELEAZAR Administration Lisinopril 5 mg 11/03/24 09:00 11/03/24 09:57 Lisinopril 2.5 Mg Tablet PO 12/03/24 08:59 5 mg QDAY ELEAZAR Administration Ondansetron HCl 4 mg 11/01/24 21:16 11/01/24 23:58 Ondansetron Inj 2 Mg/Ml Inj 2 Ml IV 12/01/24 21:15 4 mg Q4HR PRN Administration NAUSEA OR VOMITING Paroxetine HCl 10 mg 11/03/24 10:00 11/03/24 10:51 Paroxetine Hcl 10 Mg Tablet PO 12/03/24 09:59 10 mg QDAY ELEAZAR Administration Quetiapine Fumarate 25 mg 11/03/24 21:00 Quetiapine Fumarate 25 Mg Tablet PO 12/03/24 20:59 HS ELEAZAR Plan The patient is a 73-year-old male with a previous medical history of hypertension, hyperlipidemia, COPD, depression who was brought into the ED due to confusion and expressive aphasia, he was admitted for stroke rule out and workup. #Acute on chronic encephalopathy, improved #Expressive aphasia #Acute CVA ruled out DDx: CVA, TIA, metabolic encephalopathy, drug withdrawal Patient has not been taking paroxetine consistently, this could be partially related to withdrawal Will see how patient improves with paroxetine and other workup NIHSS: 3 No tPA given 11/02/24: MR stroke protocol negative for acute stroke. Speech therapy recommended regular diet. Urine drug test is negative. TSH level 1.87, LDL cholesterol 136, HDL 46, A1c 5.6%. 11/03/24: Echo showed ejection fraction of 60 to 65%, bubble study was negative for PFO or ASD. Moderate aortic valve sclerosis without stenosis. Syphilis serology negative, folate, B12 TSH are within normal limits. LDL level is 136, HDL 46. Urine culture results are pending. Plan: ? Physical therapy eval pending ? Neurochecks every 4 hours ? Head of bed elevation 30 degrees ? DVT prophylaxis ? Dual antiplatelet therapy with aspirin and clopidogrel for 21 days ? Atorvastatin 80 mg at bedtime ? Telemetry ? Inpatient neurology consulted, appreciate recommendations ?EEG pending #Hypertension #Hyperlipidemia Chronic Plan: ? Lisinopril 5 mg qday ? Lipitor 40 mg at bedtime #History of pulmonary nodule, 6mm, R upper lobe #History of COPD Seen on previous CXR, 6mm RUL Plan: ? Outpatient follow-up for CT for pulmonary nodule ? DuoNebs every 6 hours as needed #Health Maintenance Disposition: Telemetry DVT prophylaxis: Lovenox GI prophylaxis: None Indicated at this time Diet: cardiac CODE STATUS: Full code Plan of care discussed with attending Dr. Corbett, PGY-[address] Steve. Elizabeth Guan MD, PGY 1. Attending Provider Attestation/Addendum I attest that I was physically present for the evaluation, physical examination, lab and imaging review of the patient with the residents. I discussed the case with the residents and agree with the findings and plans of care as documented above. At bedside today, patient appears comfortable. He continues to be confused, only able to answer partially questions and slow to response. Vitamin B12, folate, vitamin D, ammonia level and syphilis serology has been within normal limits/negative. Continues to be on dual antiplatelets and statin. Discussed with neurology, suggested the patient might have some form of dementia. Family at bedside updated about patient's current condition and further management plans. Awaiting echocardiography and EEG results. Robert Corbett MD
[2024-11-03 15:30] VITALS: BMI 25.7
[2024-11-03 16:00] VITALS: BP 124/73; PULSE 80; PULSE 84; RESP 24; TEMP 36.2; O2SAT 96
--- NOTE | 2024-11-03 17:41 | PC.SS ---
FREELANCE [employer] REPORTER conducted bedside contact with the patient conduct initial assessment and to discuss discharge planning.? At bedside with patient was spouse, Janis Avalos.? FREELANCE COURT REPORTER utilized interior block wirer to assist with discussion.? Patient resides at home with spouse.? Patient does not utilize DME to assist with ambulation. ?Patient does not utilize home oxygen.? Patient is independent with completion of ADL?s. Patient?s medical surrogate decision maker is son, Henry Avalos; [phone].? Patient?s PCP is Anisha Nava.? The patient does not possess any specialty providers.? The patient does not participate with dialysis.? Patient utilizes [facility] for medication services.? Discharge plan is for the patient to return home at the time of discharge.? Family will provide transportation on behalf of the patient.? No needs identified by the patient.? No further intervention required at this time, social science research assistant will be available to address any further concerns.? Next of Kin: Janis Avalos D/C Plan: Home
--- NOTE | 2024-11-03 19:35 | ESPR_ITS ---
Documentation for date of: 11/03/24 Exam - Neurology Vital Signs Temp Pulse Resp BP Pulse Ox O2 Del Method 97.1 F 80 24 H 124/73 96 Room Air 11/03/24 16:00 11/03/24 16:00 11/03/24 16:00 11/03/24 16:00 11/03/24 16:00 11/03/24 16:00 Objective Labs 11/03/24 05:38 11/03/24 05:38 Labs: Laboratory Results - last 24 hr 11/03/24 05:38 WBC 13.4 H RBC 4.71 Hgb 13.8 Hct 39.6 L MCV 84 MCH 29.3 MCHC 34.8 RDW Std Deviation 38.9 Plt Count 316 D Neut % (Auto) 65 Lymph % (Auto) 24 [place] % (Auto) 9 Eos % (Auto) 2 Baso % (Auto) 1 Neut # (Auto) 8.6 H Lymph # (Auto) 3.2 [place] # (Auto) 1.2 H Eos # (Auto) 0.3 Baso # (Auto) 0.1 Immature Gran # (Auto) 0.03 H Absolute Nucleated RBC 0.00 Immature Gran % 0 Nucleated RBC % 0 PT 11.4 INR 1.0 APTT 34.1 Sodium 136 Potassium 4.1 Chloride 102 Carbon Dioxide 21.4 Anion Gap 13 BUN 18 Creatinine 0.8 Estim Creat Clear Calc 81.9 eGFR > 60 BUN/Creatinine Ratio 23 H Glucose 111 H Calculated Osmolality 274 L Calcium 9.3 Corrected Calcium 9.3 Phosphorus 3.7 Magnesium 2.0 Total Bilirubin 0.6 AST 23 ALT 13 Alkaline Phosphatase 82 Total Protein 7.6 Albumin 4.4 Globulin 3.2 Albumin/Globulin Ratio 1.4 25-OH Vitamin D Total 23.7
[2024-11-03 20:00] VITALS: BP 164/95; PULSE 68; PULSE 69; RESP 20; TEMP 36.4; O2SAT 96
[2024-11-03] MEDS: QUEtiapine FUMARATE 25 MG TABLET PO (20:01)
[2024-11-03] MEDS: ATORVASTATIN CALCIUM 20 MG TABLET 80 MG PO (20:02)
[2024-11-04] VITALS (7 sets, daily range): BP systolic 117–152; BP diastolic 69–94; PULSE 57–85; RESP 16–20; TEMP 35.9–36.6; O2SAT 94–97
[2024-11-04] MEDS: DiphenhydrAMINE INJ 50 MG/ML VIAL 12.5 MG IV (01:05)
[2024-11-04] MEDS: HALOPERIDOL LACT INJ 5 MG/ML VIAL IM (01:06)
--- NOTE | 2024-11-04 01:15 | PC.NURSE ---
pt started trying to leave the room. at bedside. pt not getting back in bed and wanting to leave Dr notified orders placed and carried out.
[2024-11-04 06:05] LABS: Basophils # (Auto) 0.1 Thou/mm3 (0.0-0.2); Basophils % (Auto) 1 % (0-2.5); Eosinophils # (Auto) 0.4 Thou/mm3 (0.0-0.5); Eosinophils % (Auto) 3 % (0-10); Hematocrit 38.7 % (41.0-53.0); Hemoglobin 13.4 g/dL (13.5-16.0); Immature Granulocytes % (Auto) 1 % (0-0); Immature Granulocytes Auto 0.07 Thou/mm3 (0.00-0.00); Lymphocytes # (Auto) 2.8 Thou/mm3 (1.0-4.8); Lymphocytes % (Auto) 20 % (10-50); Mean Corpuscular HGB Conc 34.6 g/dl (31.0-37.0); Mean Corpuscular Volume 84 fL (80-100); Monocytes # (Auto) 1.4 Thou/mm3 (0.0-0.8); Monocytes % (Auto) 10 % (0-12); Neutrophils # (Auto) 9.6 Thou/mm3 (1.8-7.7); Neutrophils % (Auto) 67 % (37-80); Nucleated Red Blood Cell % 0 /100 WBC (0); Platelet Count 344 Thou/mm3 (140-440); RDW Standard Deviation 38.9 fL (35.1-43.9); Red Blood Count 4.62 Miln/mm3 (4.50-5.90); White Blood Count 14.4 Thou/mm3 (3.8-10.6)
[2024-11-04 06:23] LABS: Alanine Aminotransferase 16 U/L (10-49); Albumin, Serum 4.2 gm/dL (3.4-4.8); Albumin/Globulin Ratio 1.4 (1.2-2.2); Alkaline Phosphatase 80 U/L (46-116); Anion Gap 10 (7-16); Aspartate Amino Transferase 19 U/L (0-34); BUN/Creatinine Ratio 24 Ratio (12-20); Bilirubin,Total 0.5 mg/dL (0.3-1.2); Blood Urea Nitrogen 19 mg/dL (9-23); Calcium 9.2 mg/dL (8.3-10.6); Calcium (Corrected) 9.2 mg/dL (8.5-10.1); Carbon Dioxide 22.4 mMol/L (20.0-31.0); Chloride 105 mMol/L (98-107); Creatinine (Component) 0.8 mg/dL (0.6-1.3); Estimated Creatinine Clearance 81.9 mL/min (>60); Globulin 3.1 gm/dL (2.3-3.5); Glucose 109 mg/dL (74-106); Magnesium 2.1 mg/dL (1.6-2.6); Osmolality,Calculated 277 (275-295); Phosphorous 3.8 mg/dL (2.4-5.1); Potassium 4.4 mMol/L (3.4-5.1); Sodium 137 mMol/L (136-145); Total Protein 7.3 gm/dL (5.7-8.2); eGFR > 60 See Note
[2024-11-04 08:34] LABS: C-Reactive Protein 8.7 mg/dL (0.0-0.9)
[2024-11-04 08:38] LABS: Sed Rate (ESR) 57 mm/hr (0-20)
[2024-11-04] MEDS: Lisinopril 20 MG TABLET PO (09:03)
[2024-11-04] MEDS: PARoxetine HCL 10 MG TABLET PO (09:03)
[2024-11-04] MEDS: ENOXAPARIN SOD INJ 40 MG/0.4 ML SYRINGE SC (09:03)
[2024-11-04] MEDS: ASPIRIN EC 81 MG TABEC PO (09:03)
[2024-11-04 11:25] LABS: Procalcitonin 0.09 ng/ml (0.0-0.49)
--- NOTE | 2024-11-04 16:34 | PD.RESDS ---
Planned Discharge Date 11/04/24 DS: Providers Provider Date of admission: 11/01/24 22:57 Primary care physician: CARRILLO Harley Admitting Provider: Yoan Acosta MD Attending Provider on Admission: Robert Corbett MD Consults: 11/01/24 21:16 Consult to Neurology / Tele-Neurology Routine Comment: Consulting Provider: [facility] 11/02/24 00:25 Consult to Neurology / Tele-Neurology Routine Comment: Consulting Provider: Ollie Díaz Referral Physical Therapy Routine Comment: Physician Instructions: Referral Speech Therapy Routine Comment: Attending Provider on DC: Elizabeth Guan MD Discharging Provider: Elizabeth Guan MD DS: Diagnosis Problem List Completed Was Problem List Reviewed/Reconciled?: Yes Hospital Course Hospital Course Hospital course: The patient is a 73-year-old male with a previous medical history hypertension, hyperlipidemia, COPD who was brought in on 11/02/2019 5 in the evening due to altered mental status that started at 4 PM witnessed by his . She reported that patient's speech became nonsensical, he was acting abnormal which prompted them to go to the ED. She denied trauma. On further questioning she reports that his symptoms started approximately an year ago, back then he had an episode of altered mentation, stiffness, he was unresponsive for approximately 30 min, but after he gained consciousness he did not pursue any workup. After that he became having trouble with speech, with finding words and understanding speech, he was fired from his job in the [employer] due to his boss not understanding his speech, he stopped driving because he was stopped by the police due to swelling on the road. But later, she reported that symptoms may have started even earlier, 3 years ago. Stroke alert was initiated, teleneuro was consulted, NIHSS score was 3, mild to moderate aphasia, mild to moderate dysarthria. CT head was negative for signs of acute stroke, CTA was negative for large vessel occlusion. He received bolus of clopidogrel and MEGHANN was started. Lab work showed mild leukocytosis, C-reactive protein of 8.7, Pro-Ángel (11/04/24) was 0.09. Inpatient neurology was consulted, MRI of the brain was negative for acute stroke, showed increased white matter signal prominence. EEG done and patient was noninformative due to non-encephalic artifacts. During admission patient continued to have expressive aphasia, started to experience symptoms of hospital delirium that required antipsychotics and soft physical restraints. According to Dr. Díaz, neurologist underlying processes most likely unspecified dementia. Patient was started on aspirin 81 mg, atorvastatin, memantine. PT assessed the patient, no additional PT was recommended. Patient was seen and examined at the bedside and was medically cleared for discharge home. Hospital diagnoses: #Acute on chronic encephalopathy, improved #Expressive aphasia #Acute CVA ruled out #Hypertension #Hyperlipidemia #History of pulmonary nodule, 6mm, R upper lobe #History of COPD Discharge recommendations: Follow-up with your PCP in 1 week and obtain referral to neurologist Dr. Díaz Repeat CBC, CMP in 1 week Start aspirin 81 mg once a day Start memantine 5mg twice a day Change atorvastatin to 80mg once a day Hold paroxetine until you see the neurologist outpatient in 1-2 weeks Take the rest of your medication as prescribed Via Google Translate: Recomendaciones para el eugenio: Consulte con [facility]?dico de cabecera en dennys semana y obtenga dennys derivaci?n al neur?logo Dr. Díaz. Repita el hemograma y el recuento sangu?radha completo en dennys semana. Inicie aspirina 81 mg dennys vez al d?a. Inicie memantina 5 mg dos veces al d?a. Cambie atorvastatina 80 mg dennys vez al d?a. Suspenda la paroxetina hasta que ann al neur?logo en consulta externa en dennys o dos semanas. [place] el ruchi de [facility] medicaci?n seg?n lo prescrito. Plan of care discussed with attending Dr. Corbett and PGY-[address] Knight. Elizabeth Guan MD, PGY 1. Time Spent with Patient Time attestation: Total time spent providing and/or coordinating discharge services: Time spent: Less than 30 minutes Exam Vital Signs Temp Pulse Resp BP Pulse Ox O2 Del Method 96.7 F L 68 20 117/69 95 Room Air 11/04/24 12:11/04/24 12:11/04/24 12:11/04/24 12:11/04/24 12:00 11/04/24 12:00 Narrative Exam Physical Exam General: Awake and in no acute distress. Conversational and non-toxic appearing. Mild aphasia. HEENT: Normocephalic, atraumatic, mucous membranes moist. Heart: Regular rate and rhythm, no murmurs. Lungs: Clear to auscultation with no wheezing or crackles. Abdomen: Soft, nondistended, nontender, positive bowel sounds. ?No guarding or rebound tenderness. Neurologic: Alert and oriented x2, slightly aphasic and patient able to move all 4 extremities. Extremities: No edema. Skin: No rash or ecchymoses. Discharge Plan Plan Patient Disposition: HOME (Self Care) Patient condition on transfer: Stable Care Plan Goals: Discharge recommendations: Follow-up with your PCP in 1 week and obtain referral to neurologist Dr. Díaz Repeat CBC, CMP in 1 week Start aspirin 81 mg once a day Start memantine 5mg twice a day Change atorvastatin to 80mg once a day Hold paroxetine until you see the neurologist outpatient in 1-2 weeks Take the rest of your medication as prescribed Via Google Translate: Recomendaciones para el eugenio: Consulte con [facility] m?dico de cabecera en dennys semana y obtenga dennys derivaci?n al neur?logo Dr. Díaz. Repita el hemograma y el recuento sangu?radha completo en dennys semana. Inicie aspirina 81 mg dennys vez al d?a. Inicie memantina 5 mg dos veces al d?a. Cambie atorvastatina 80 mg dennys vez al d?a. Suspenda la paroxetina hasta que ann al neur?logo en consulta externa en dennys o dos semanas. [place] [facility] medicaci?n seg?n lo prescrito. Prescriptions/Referrals Prescriptions/Med Rec: New aspirin 81 mg tablet,delayed release (DR/EC) 81 mg PO QDAY 30 Days Qty: 30 0RF memantine 5 mg tablet 5 mg PO BID 30 Days Qty: 60 0RF lisinopril 40 mg tablet 40 mg PO QDAY 30 Days Qty: 30 2RF Continued albuterol sulfate 90 mcg/actuation HFA aerosol inhaler 2 inh inhalation Q6H PRN (Reason: shortness of breath or wheezing) Qty: 6.7 0RF Rx Instructions: [place] Atrovent HFA 17 mcg/actuation HFA aerosol inhaler 2 puff inhalation Q8H Qty: 12.9 0RF (DME) compressor, for nebulizer Device See Rx Instructions .ROUTE .MEDSUPPLY Qty: 1 0RF Rx Instructions: As directed hydrochlorothiazide 25 mg tablet 25 mg PO QDAY Patient Comments: TOME DENNYS TABLETA POR VIA ORAL TODOS LOS BURLESON EN LA MANANA Changed atorvastatin 40 mg tablet 80 mg PO HS 30 Days Qty: 60 0RF Patient Comments: TOME DENNYS TABLETA POR V A ORAL TODOS LOS D Held paroxetine HCl [Paxil] 10 mg tablet 10 mg PO QDAY Qty: 30 0RF Hold Instructions: Resume on 11/11/24. hold until seen by neurologist Discontinued Elisarochellebenny Aerosphere 160-9-4.8 mcg/actuation HFA aerosol inhaler 2 inh inhalation BID Qty: 10.7 0RF rosuvastatin 40 mg tablet 40 mg PO QDAY Qty: 30 0RF lisinopril 40 mg tablet 40 mg PO QDAY Qty: 30 0RF Rx Instructions: Directions in Welsh Referrals: Elijah RAYMOND,NEELIMA SilvermanP [Primary Care Provider] - Patient/Caregiver Discharge Instructions Education Materials: Understanding Dementia, Dementia Communicate Patients, Delirium & Dementia Difference Print Language: Welsh Stand Alone Forms: Mary Anne Award Info., Patient Portal Info Letter Discharge Order Discharge Orders: Discharge (Routine); Ordered 11/04/24 Ordered By: Elizabeth Guan Quality Discharge Quality Measures VTE prophylaxis Attestestation MD Attestation I attest that I was physically present for the evaluation, physical examination, lab and imaging review of the patient with the residents. I discussed the case with the residents and agree with the findings and plans of care as documented above. Robert Corbett MD
--- NOTE | 2024-11-04 23:21 | VVPN_ITS ---
Telemedicine visit statement This visit was conducted with the use of interactive audio and video telecommunications system that permits real time communication between the patient and the provider. Patient's verbal consent for virtual visit was obtained on 11/04/24 at 2321. Documentation for date of: 11/04/24 Virtual exam Vital Signs Temp Pulse Resp BP Pulse Ox O2 Del Method 97.4 F 57 L 18 129/70 95 Room Air 11/04/24 16:00 11/04/24 16:00 11/04/24 16:00 11/04/24 16:00 11/04/24 16:00 11/04/24 16:00 Objective Labs 11/04/24 05:22 11/04/24 05:22 Labs: Laboratory Results - last 24 hr 11/04/24 11/04/24 05:22 10:50 WBC 14.4 H RBC 4.62 Hgb 13.4 L Hct 38.7 L MCV 84 MCH 29.0 MCHC 34.6 RDW Std Deviation 38.9 Plt Count 344 Neut % (Auto) 67 Lymph % (Auto) 20 Johnston % (Auto) 10 Eos % (Auto) 3 Baso % (Auto) 1 Neut # (Auto) 9.6 H Lymph # (Auto) 2.8 Johnston # (Auto) 1.4 H Eos # (Auto) 0.4 Baso # (Auto) 0.1 Immature Gran # (Auto) 0.07 H Absolute Nucleated RBC 0.00 Immature Gran % 1 H Nucleated RBC % 0 ESR 57 H Sodium 137 Potassium 4.4 Chloride 105 Carbon Dioxide 22.4 Anion Gap 10 BUN 19 Creatinine 0.8 Estim Creat Clear Calc 81.9 eGFR > 60 BUN/Creatinine Ratio 24 H Glucose 109 H Calculated Osmolality 277 Calcium 9.2 Corrected Calcium 9.2 Phosphorus 3.8 Magnesium 2.1 Total Bilirubin 0.5 AST 19 ALT 16 Alkaline Phosphatase 80 C-Reactive Prot, Quant 8.7 H Total Protein 7.3 Albumin 4.2 Globulin 3.1 Albumin/Globulin Ratio 1.4 Procalcitonin 0.09
[2024-11-13 07:13] LABS: ANA Screen, IFA NEGATIVE (NEGATIVE)
== END 2024-11-04 17:55 | disposition home or self-care (01) | DRG 71 ==
LOC: SERX 22:50 → SERHOLD 23:07 → S2NX 11-02 23:55
PROVIDERS: Physician Assistant; Student in an Organized Health Care Education/Training Program; Admitting Provider Internal Medicine; Emergency Provider Emergency Medicine; PCP Nurse Practitioner Family; Visit Provider Student in an Organized Health Care Education/Training Program
DX: G93.40 Encephalopathy, unspecified (principal); R47.01 Aphasia; I10 Essential (primary) hypertension; E78.5 Hyperlipidemia, unspecified; J44.9 Chronic obstructive pulmonary disease, unspecified; F41.9 Anxiety disorder, unspecified; F32.A Depression, unspecified; D72.829 Elevated white blood cell count, unspecified; R47.1 Dysarthria and anarthria; F03.90 Unspecified dementia, unspecified severity, without behavioral disturbance, psychotic disturbance, mood disturbance, and anxiety; I35.8 Other nonrheumatic aortic valve disorders; I65.22 Occlusion and stenosis of left carotid artery; R91.1 Solitary pulmonary nodule; Z78.1 Physical restraint status; Z79.82 Long term (current) use of aspirin; Z87.891 Personal history of nicotine dependence; Z79.899 Other long term (current) drug therapy
CPT/HCPCS: 36415; 70450; 70496; 70498; 70544; 80053; 80061; 80307; 80320; 81001; 82140; 82306; 82607; 82746; 83036; 83735; 84100; 84145; 84443; 84484; 84703; 85025; 85610; 85652; 85730; 86038; 86140; 86780; 87086; 92610; 93005; 93306; 95816; 96372; 96374; 97162; 99291; A4649; J1200; J1630; J1650; J2405; Q9967; A9270; G0480

== ENCOUNTER → 2024-11-08 | Outpatient (BNVA) | payer MEDICARE, MEDICAID, SELFPAY | END | disposition home or self-care (01) | PROVIDERS: PCP Nurse Practitioner Family; Referring Provider Nurse Practitioner Family; Visit Provider Nurse Practitioner Family | DX: Z76.89 Persons encountering health services in other specified circumstances (principal); R47.01 Aphasia; J44.9 Chronic obstructive pulmonary disease, unspecified; E78.5 Hyperlipidemia, unspecified | CPT/HCPCS: 99215 ==

== ENCOUNTER → 2024-11-22 | Outpatient (BNVA) | payer MEDICARE, MEDICAID, SELFPAY | END | disposition home or self-care (01) | PROVIDERS: PCP Nurse Practitioner Family; Referring Provider Nurse Practitioner Family; Visit Provider Nurse Practitioner Family | DX: I10 Essential (primary) hypertension (principal) | CPT/HCPCS: 99214 ==

== ENCOUNTER → 2024-12-05 | Outpatient (BNVA) | payer MEDICARE, MEDICAID, SELFPAY | END | disposition home or self-care (01) | PROVIDERS: PCP Nurse Practitioner Family; Referring Provider Nurse Practitioner Family; Visit Provider Nurse Practitioner Family | DX: Z23 Encounter for immunization (principal); Z86.73 Personal history of transient ischemic attack (TIA), and cerebral infarction without residual deficits; I10 Essential (primary) hypertension; E78.5 Hyperlipidemia, unspecified; R73.03 Prediabetes | CPT/HCPCS: 90471; 90677; 99213; G0009; J90677 ==

== ENCOUNTER → 2024-12-12 | Outpatient (BNVA) | payer MEDICARE, MEDICAID, SELFPAY | END | disposition home or self-care (01) | PROVIDERS: PCP Nurse Practitioner Family; Referring Provider Nurse Practitioner Family; Visit Provider Nurse Practitioner Family | DX: Z86.73 Personal history of transient ischemic attack (TIA), and cerebral infarction without residual deficits (principal) | CPT/HCPCS: 99212; G0463 ==

== ENCOUNTER → 2024-12-15 | Outpatient (BNVA) | payer MEDICARE, MEDICAID, SELFPAY | END | disposition home or self-care (01) | PROVIDERS: PCP Nurse Practitioner Family; Referring Provider Nurse Practitioner Family; Visit Provider Nurse Practitioner Family | DX: Z71.2 Person consulting for explanation of examination or test findings (principal); Z86.73 Personal history of transient ischemic attack (TIA), and cerebral infarction without residual deficits; E78.5 Hyperlipidemia, unspecified | CPT/HCPCS: 99214 ==

== ENCOUNTER → 2024-12-21 | Outpatient (BNVA) | payer MEDICARE, MEDICAID, SELFPAY | END | disposition home or self-care (01) | PROVIDERS: PCP Nurse Practitioner Family; Referring Provider Nurse Practitioner Family; Visit Provider Nurse Practitioner Family | DX: Z71.2 Person consulting for explanation of examination or test findings (principal) | CPT/HCPCS: 99212; G0463 ==

== ENCOUNTER → 2024-12-25 | Outpatient (BNVA) | payer MEDICARE, MEDICAID, SELFPAY | END | disposition home or self-care (01) | PROVIDERS: PCP Nurse Practitioner Family; Referring Provider Nurse Practitioner Family; Visit Provider Nurse Practitioner Family | DX: Z86.73 Personal history of transient ischemic attack (TIA), and cerebral infarction without residual deficits (principal) | CPT/HCPCS: 99212; G0463 ==